=== PATIENT | female | born 1990 | race Caucasian/White ===

== ENCOUNTER 2017-02-07 16:36 | Emergency (ER) | payer BC, MEDICAID ==
[~2017-02-07] VITALS: Ht 175.3 cm; Wt 60.3 kg
[2017-02-07] MEDS ORDERED: ALBUTEROL SULFATE 2.5 MG/3 ML NPPB ONE (18:30)
[2017-02-07] MEDS ORDERED: ALBUTEROL SULFATE 2.5 MG/3 ML ONE (18:42)
[2017-02-07 19:27] VITALS: BP 118/78
== END 2017-02-07 19:29 | disposition home or self-care (01) ==
LOC: ED 19:23
DX: J98.01 Acute bronchospasm (principal); B34.9 Viral infection, unspecified
CPT/HCPCS: 71020; 94640; J7613